=== PATIENT | male | born 1960 | race Caucasian/White ===

== ENCOUNTER 2016-10-06 16:25 | Inpatient (IN) | payer OTHER ==
[2016-10-06] MEDS ORDERED: NITROGLYCERIN 0.4 MG BTL SL PRN (18:25)
[2016-10-06] MEDS ORDERED: ONDANSETRON DISINTEGRATING 4 MG TAB PO PRN (18:25)
[2016-10-06] MEDS ORDERED: ACETAMINOPHEN 325 MG TAB PO PRN (18:25)
[2016-10-06] MEDS ORDERED: ZOLPIDEM TARTRATE 5 MG TAB PO PRN (18:25)
[2016-10-06] MEDS ORDERED: ONDANSETRON 4 MG/2 ML VIAL IVP PRN (18:25)
[2016-10-06] MEDS ORDERED: TEMAZEPAM 15 MG CAP PO PRN (18:28)
[2016-10-06 18:49] LABS: % IMMATURE GRANULYOCYTES 0.3 % (0.0-1.1); ABSOLUTE IMMATURE GRANULOCYTES 0.02 10^3/uL (0.00-0.10); ADD DIFF? NO; ADD MORPH? NO; ADD SCAN? NO; ATYPICAL LYMPHOCYTE FLAG 0 (0-99); FRAGMENT RBC FLAG 0 (0-99); HEMATOCRIT 44.5 % (40.0-51.0); HEMOGLOBIN 15.5 g/dL (13.7-17.5); LEFT SHIFT FLG 0 (0-99); LIPEMIA HEMOLYSIS FLAG 90 (0-99); MEAN CELL HEMOGLOBIN 32.3 pg (27.9-34.1); MEAN CELL HEMOGLOBIN CONCENTR. 34.8 g/dL (32.4-36.7); MEAN CELL VOLUME 92.7 fL (81.5-99.8); MEAN PLATELET VOLUME 9.6 fL (8.7-11.7); PLATELET CLUMPS FLAG 0 (0-99); PLATELET COUNT 258 10^3/uL (150-400); RED CELL DISTRIBUTION WIDTH 11.6 % (11.5-15.2)
[2016-10-06 18:57] LABS: INR 0.95 (0.83-1.16); PROTIME(PATIENT) 12.6 SEC (12.0-15.0)
[2016-10-06 19:04] LABS: CHOLESTEROL 219 mg/dL (140-220); CHOLESTEROL/HDL RATIO 8.11 RATIO (1.00-4.97); HIGH DENSITY LIPOPROTEIN 27 mg/dL (40-65); LDL/HDL RATIO 5.37 RATIO (1.00-3.64); LOW DENSITY LIPOPROTEIN 145 mg/dL (80-100); NON-HIGH DENSITY LIPOPROTEIN 192 mg/dL (90-129); TRIGLYCERIDE 239 mg/dL (40-150); VERY LOW DENSITY LIPOPROTEINS 47 mg/dL (8-25)
[2016-10-06 19:16] LABS: TROPONIN I 0.498 ng/mL (0-0.034)
[2016-10-06] MEDS: METOPROLOL TARTRATE 25 MG TAB PO SCH (21:07)
[2016-10-07] MEDS: NITROGLYCERIN 2% 1 GM PACKET TP SCH ×3 (00:02→13:13)
[2016-10-07 04:10] LABS: ANION GAP 10 mEq/L (8-16); CALCIUM 9.3 mg/dL (8.5-10.4); CARBON DIOXIDE 22 mEq/l (22-31); CHLORIDE 109 mEq/L (97-110); CHOLESTEROL 197 mg/dL (140-220); CHOLESTEROL/HDL RATIO 7.88 RATIO (1.00-4.97); GLOMERULAR FILTRATION RATE > 60; GLUCOSE 89 mg/dL (70-100); HIGH DENSITY LIPOPROTEIN 25 mg/dL (40-65); LDL/HDL RATIO 4.88 RATIO (1.00-3.64); LOW DENSITY LIPOPROTEIN 122 mg/dL (80-100); MAGNESIUM 2.3 mg/dL (1.6-2.3); NON-HIGH DENSITY LIPOPROTEIN 172 mg/dL (90-129); POTASSIUM 4.2 mEq/L (3.5-5.2); SODIUM 141 mEq/L (134-144); TRIGLYCERIDE 253 mg/dL (40-150); VERY LOW DENSITY LIPOPROTEINS 50 mg/dL (8-25)
[2016-10-07] MEDS ORDERED: diphenhydrAMINE 25 MG CAP PO ONE (06:00)
[2016-10-07] MEDS ORDERED: ASPIRIN EC 325 MG TAB PO ONE (06:00)
[2016-10-07] MEDS ORDERED: DIAZEPAM 5 MG TAB PO ONE (06:00)
--- NOTE | 2016-10-07 08:18 | CPEKG ---
Heart Rate: 60 RR Interval: 1000 P-R Interval: 188 QRSD Interval: 98 QT Interval: 412 QTC Interval: 412 P [place]: 47 QRS [place]: -35 T Wave [place]: 30 EKG Severity - ABNORMAL ECG - EKG Impression: SINUS RHYTHM EKG Impression: LEFT AXIS DEVIATION EKG Impression: NONSPECIFIC T ABNORMALITIES, ANT-LAT LEADS Electronically Signed By: Julio C Ventura 07-Oct-2016 10:13:45
[2016-10-07] MEDS ORDERED: LIDOCAINE 1% 300 MG/30 ML SDV ONE (08:24)
[2016-10-07] MEDS ORDERED: MIDAZOLAM 2 MG/2 ML VIAL ONE (08:24)
[2016-10-07] MEDS ORDERED: VERAPAMIL 5 MG/2 ML VIAL ONE (08:24)
[2016-10-07] MEDS ORDERED: IOPAMIDOL (ISOVUE-370) 150 ML BTL IV ONE (08:24)
[2016-10-07] MEDS ORDERED: fentaNYL 100 MCG/2 ML INJ ONE (08:24)
[2016-10-07] MEDS ORDERED: HEPARIN 10,000 UNIT/10 ML MDV ONE (08:24)
--- NOTE | 2016-10-07 09:17 | CPEKG ---
Heart Rate: 73 RR Interval: 822 P-R Interval: 196 QRSD Interval: 102 QT Interval: 384 QTC Interval: 424 P [place]: 36 QRS [place]: -48 T Wave [place]: 45 EKG Severity - ABNORMAL ECG - EKG Impression: SINUS RHYTHM EKG Impression: LEFT ANTERIOR FASCICULAR BLOCK EKG Impression: LEFT VENTRICULAR HYPERTROPHY Electronically Signed By: Julio C Ventura 07-Oct-2016 10:48:35
[2016-10-07] MEDS: ASPIRIN EC 81 MG TAB PO SCH (09:45)
[2016-10-07] MEDS ORDERED: NITROGLYCERIN 1,500 MCG/15 ML VIAL MISC ONE (09:59)
[2016-10-07] MEDS ORDERED: CLOPIDOGREL BISULFATE 75 MG TAB ONE (10:11)
[2016-10-07] MEDS ORDERED: ATROPINE SULFATE 1 MG/10 ML SYR IVP PRN (10:51)
[2016-10-07] MEDS ORDERED: CLOPIDOGREL BISULFATE 75 MG TAB PO ONE (10:51)
--- NOTE | 2016-10-07 10:57 | PDDXCAT ---
Diagnostic Cath Note - . Date: 10/07/16 Nurse Ob: Manpreet Indication: CCC Class III and IV angina on medical treatment, High-risk criteria on noninvasive testing (choose option below) High-risk criteria on non-invasive testing: high-risk treadmill score (score<=- 11) - Procedure Access: left wrist Procedure: left heart catheterization, coronary angiography, left ventriculogram - Materials Left Heart Cath size: 5F Left Heart Cath materials: JL3.5, JR4.0, pigtail - Findings-Left Heart Catheterization LM: Unobstructed LAD: MASSIEL grade 2 flow with 99% obstruction in the proximal vessel LCX: Dominant: Unobstructed RCA: Non dominant diffuse disease EDP: 12 mm of mercury LVEF: 65% Wall motion: Normal Complications: [place] with injection of the right coronary artery requiring cardioversio Estimated blood loss: <50ml Closure method: TR Band Assessment: Unstable angina with critical occlusion of the proximal LAD. Normal LV systolic function. Plan: Urgent PCI of the LAD Intervention: Procedure: PCI and stenting of the LAD. After reviewing diagnostic angiograms it was elected to proceed with urgent PCI of the LAD. Patient was anticoagulated with heparin. Therapeutic ACT was confirmed. Using a 5 [place] JL4 guiding catheter left main coronary selectively intubated. Using a 0.014 luge wire the LAD stenosis was crossed. The lesion was pre-dilated with a 2 mm balloon x2. Repeat angiograms revealed MASSIEL grade 2 flow. The distal stenosis was identified. A 2.5 x 12 mm synergy stent was placed distally and deployed using a single inflation. A 3.0 x 38 mm synergy stent was placed proximally and deployed using a single inflation up to 15 atmospheres. Repeat angiogram showed MASSIEL grade 3 flow. Final orthogonal angiograms were obtained. Pigtail catheter was used to assess left ventricular function. Conclusions: Successful PCI and stenting of the LAD with a 3.0 x 38 mm synergy stent proximally and a 2.5 x 12 mm synergy stent distally. Plan: Aggressive secondary prevention with clinical follow-up. Results including need for cardioversion were discussed with family. Patient Problems: Problems Problem Status Onset Hyperlipidemia Acute Status post insertion of drug-eluting stent into left anterior descending (LAD) artery for coronary artery disease Acute Stenosis of left anterior descending (LAD) artery Acute Coronary artery disease Acute
[2016-10-07] MEDS ORDERED: NS 1,000 ML IV SCH (11:00)
[2016-10-07] MEDS ORDERED: ATORVASTATIN CALCIUM 40 MG TAB PO SCH (11:00)
--- NOTE | 2016-10-07 11:00 | SOAPPROG ---
SOAP Progress Note Assessment/Plan: Assessment: 1. Acute coronary syndrome with T-wave inversions anteriorly elevation in troponin. 2. Abnormal stress test. 3. Hyperlipidemia. Successful PCI and stenting of the LAD. Plan: Aggressive secondary prevention. 10/07/16 10:57 Subjective: Uneventful night without further chest pain. Status post cardiac catheterization with PCI and stenting of the LAD. Patient reported progressive angina over 1 week with postprandial angina over the last day. Objective: Vital Signs Temp Pulse Resp BP Pulse Ox 37.0 C 65 25 H 101/77 95 10/07/16 08:10 10/07/16 08:10 10/07/16 08:10 10/07/16 08:10 10/07/16 08:10 Laboratory Results 10/06/16 18:00 10/07/16 03:42 10/06/16 10/07/16 10/08/16 05:59 05:59 05:59 Intake Total 400 Balance 400 PT 12.6 SEC (12.0-15.0) 10/06/16 18:00 INR 0.95 (0.83-1.16) 10/06/16 18:00 Physical Exam - Physical Exam General Appearance: alert, no apparent distress EENT: PERRL/EOMI, normal ENT inspection Neck: non-tender, full range of motion Respiratory: chest non-tender, lungs clear Cardiac/Chest: normal peripheral pulses, regular rate, rhythm, No edema, No gallop, No JVD Abdomen: normal bowel sounds, non-tender, soft Back: Normal inspection Skin: normal color, warm/dry, No cyanosis Lymphatic: no adenopathy Extremities: normal range of motion ICD10 Worksheet Patient Problems: Problems Problem Status Onset Coronary artery disease Acute Hyperlipidemia Acute Status post insertion of drug-eluting stent into left anterior descending (LAD) artery for coronary artery disease Acute Stenosis of left anterior descending (LAD) artery Acute Past Medical History - Medical/Surgical History Hx Asthma: Yes Hx Chronic Respiratory Disease: No Hx Cardiac Disease: No Hx Diabetes: No Hx Renal Disease: No Hx Alcoholism: No Hx Cirrhosis: No Hx HIV/AIDS: No Hx Splenectomy or Spleen Trauma: No Other PMH: hypertension, R meniscus removed - Social History Smoking Status: Never smoked Review of Systems - Review of Systems Constitutional: denies: chills, fever EENTM: no symptoms reported Respiratory: no symptoms reported Cardiac: chest pain. denies: edema, irregular heart rate, lightheadedness, palpitations Gastrointestinal/Abdominal: no symptoms reported Genitourinary: no symptoms Musculoskelatal: no symptoms Skin: no symptoms Neurological: no symptoms Hematologic/Lymphatic: no symptoms reported Immunologic/allergic: no symptoms reported
--- NOTE | 2016-10-07 11:40 | CPEKG ---
Heart Rate: 68 RR Interval: 882 P-R Interval: 204 QRSD Interval: 104 QT Interval: 456 QTC Interval: 486 P [place]: 41 QRS [place]: -47 T Wave [place]: 45 EKG Severity - ABNORMAL ECG - EKG Impression: SINUS RHYTHM EKG Impression: LEFT ANTERIOR FASCICULAR BLOCK EKG Impression: LEFT VENTRICULAR HYPERTROPHY EKG Impression: BORDERLINE PROLONGED QT INTERVAL Electronically Signed By: Julio C Ventura 07-Oct-2016 13:51:59
[2016-10-07] MEDS: METOPROLOL TARTRATE 25 MG TAB PO SCH (13:38)
[2016-10-07] MEDS: LISINOPRIL 10 MG TAB PO SCH (13:38)
[2016-10-08 04:20] LABS: % IMMATURE GRANULYOCYTES 0.3 % (0.0-1.1); ABSOLUTE IMMATURE GRANULOCYTES 0.02 10^3/uL (0.00-0.10); ADD DIFF? NO; ADD MORPH? NO; ADD SCAN? NO; ATYPICAL LYMPHOCYTE FLAG 0 (0-99); FRAGMENT RBC FLAG 0 (0-99); HEMATOCRIT 43.8 % (40.0-51.0); HEMOGLOBIN 15.2 g/dL (13.7-17.5); LEFT SHIFT FLG 0 (0-99); LIPEMIA HEMOLYSIS FLAG 90 (0-99); MEAN CELL HEMOGLOBIN 32.7 pg (27.9-34.1); MEAN CELL HEMOGLOBIN CONCENTR. 34.7 g/dL (32.4-36.7); MEAN CELL VOLUME 94.2 fL (81.5-99.8); MEAN PLATELET VOLUME 9.2 fL (8.7-11.7); PLATELET CLUMPS FLAG 0 (0-99); PLATELET COUNT 222 10^3/uL (150-400); RED BLOOD CELL COUNT 4.65 10^6/uL (4.40-6.38); RED CELL DISTRIBUTION WIDTH 11.9 % (11.5-15.2)
[2016-10-08 04:41] LABS: ANION GAP 9 mEq/L (8-16); ASPARTATE AMINOTRANSFERASE 25 IU/L (17-59); BILIRUBIN,TOTAL 1.2 mg/dL (0.1-1.4); CALCIUM 9.1 mg/dL (8.5-10.4); CARBON DIOXIDE 21 mEq/l (22-31); CHLORIDE 108 mEq/L (97-110); GLOMERULAR FILTRATION RATE > 60; GLUCOSE 87 mg/dL (70-100); LACTATE DEHYDROGENASE 415 IU/L (313-618); MAGNESIUM 2.3 mg/dL (1.6-2.3); POTASSIUM 4.6 mEq/L (3.5-5.2); SODIUM 138 mEq/L (134-144)
[2016-10-08 07:52] VITALS: BP 121/81; PULSE 73; RESP 17; TEMP 97.6; O2SAT 96
[2016-10-08] MEDS ORDERED: PRAVASTATIN SODIUM 20 MG TAB PO SCH (09:00)
[2016-10-08] MEDS ORDERED: CLOPIDOGREL BISULFATE 75 MG TAB PO SCH (09:00)
--- NOTE | 2016-10-08 09:03 | SOAPPROG ---
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 CAD s/p JAVIER x 2 95% LAD yesterday (Case) via R radial approach. On DAPT w / aspirin and Plavix. 2. Hyperlipidemia. Just started on pravastatin 20 mg/d. 3. HTN. Treated w/ lisinopril Plan: 1. Continue current medications. 2. Discharge to home today. 3. Follow w/ /Case to be arranged for next MondayOctober 14. 10/08/16 09:06 Subjective: No complaints overnight. Denies recurrent chest pain. Right radial puncture is mildly tender to palpation. Pulse 2+. Normal neurovascular function. Objective: Vital Signs Temp Pulse Resp BP Pulse Ox 36.4 C 73 17 121/81 H 96 10/08/16 07:51 10/08/16 07:51 10/08/16 07:51 10/08/16 07:51 10/08/16 07:51 Laboratory Results 10/08/16 03:57 10/08/16 03:57 10/07/16 10/08/16 10/09/16 05:59 05:59 05:59 Intake Total 400 2300 Balance 400 2300 PT 12.6 SEC (12.0-15.0) 10/06/16 18:00 INR 0.95 (0.83-1.16) 10/06/16 18:00 - Time Spent With Patient Time Spent With Patient: 45 minutes spent in coordinating care, physical exam, and documentation - Pending Discharge Pending Discharge Within 24 Hours: Yes Pending Discharge Date: 10/09/16 Pending Discharge Time: 11:00 Physical Exam - Physical Exam General Appearance: WD/WN, alert, no apparent distress Respiratory: chest non-tender, lungs clear, normal breath sounds Cardiac/Chest: normal peripheral pulses, regular rate, rhythm Peripheral Pulses: 2+: carotid (R), carotid (L) Abdomen: normal bowel sounds, non-tender, soft Extremities: No swelling Neuro/Psych: no motor/sensory deficits, alert, normal mood/affect, oriented x 3 ICD10 Worksheet Patient Problems: Problems Problem Status Onset Coronary artery disease Acute Hyperlipidemia Acute Status post insertion of drug-eluting stent into left anterior descending (LAD) artery for coronary artery disease Acute Stenosis of left anterior descending (LAD) artery Acute
[2016-10-08] MEDS: ASPIRIN EC 81 MG TAB PO SCH (09:04)
[2016-10-08] MEDS: LISINOPRIL 10 MG TAB PO SCH (09:04)
--- NOTE | 2016-10-08 09:53 | GDS ---
[f rep st] DISCHARGE SUMMARY [facility]IMARY [facility] OPERATIONS STAFF OFFICER: Dr. Mehul Ramsey. DISCHARGE DIAGNOSES: 1. Coronary artery disease, status post drug-eluting stent x2 to left anterior descending artery. 2. Accelerating exertional and postprandial angina. 3. Hypertension. 4. Hyperlipidemia. HOSPITAL PROCEDURES: 1. Left heart catheterization with selective coronary angiography and ventriculography. 2. Drug-eluting stent implantation x2 in left anterior descending artery. HOSPITAL COURSE: The patient is a pleasant 56-year-old male, who recently established with Dr. Abdiaziz Ramsey, of [facility], with complaint of worsening exertional chest pain and postprandial epiga stric pain radiating into his shoulders bilaterally for the past 3 weeks. He underwent an in office stress test this past , which was significantly abnormal and he was admitted urgently for o vernight monitoring and serial enzymes. His troponins were mildly elevated at 0.498 and 0.457, and it was decided to proceed with diagnostic angiography, which was yesterday. Ultimately the patient received 2 drug-eluting stents in his left anterior descending artery, 3.0 x 38 mm proximally and 2. 5 x 12 mm distally. His right coronary artery and circumflex had nonobstructive atherosclerotic dis ease. The procedure was performed via right radial approach. The patient had no complications and did well overnight. LABORATORY STUDIES: Including a chemistry panel and CBC are both normal this morning. His telemetr y monitoring is unremarkable with no significant arrhythmia or pauses. His right radial puncture si te continues to look well this morning, and there is normal neurovascular function in his right hand . We have discussed his medications in detail and he will be discharged home today as below. DISCHARGE MEDICATIONS: 1. Aspirin 81 mg p.o. daily. 2. Clopidogrel 75 mg p.o. daily. 3. Lisinopril 10 mg p.o. daily. 4. Pravastatin 20 mg p.o. daily (new medication). DISCHARGE INSTRUCTIONS: The patient will be discharged to home today in good condition. He has bee n given lifting precautions due to his right radial puncture site. He understands the importance of his dual anti-platelet therapy. Cardiac rehab has been discussed and he is unsure whether he will enroll in the program. He has followup scheduled with Dr. Case for next Monday. He is asking f or a 1 week medical leave of absence from his job. /[id number]/MODL
== END 2016-10-08 11:15 | disposition home or self-care (01) | DRG 247 ==
LOC: F2W 17:29 → OBSVTOIN 10-07 14:30
PROVIDERS: ADMIT Internal Medicine Cardiovascular Disease; ATTEND Internal Medicine Cardiovascular Disease
DX: I25.110 Atherosclerotic heart disease of native coronary artery with unstable angina pectoris (principal); I24.9 Acute ischemic heart disease, unspecified; I45.81 Long QT syndrome; E78.5 Hyperlipidemia, unspecified; I10 Essential (primary) hypertension
CPT/HCPCS: C1725; C1769; C1874; C1887; C9600; G0378; J1644; J2250; J3010; Q9967